=== PATIENT | female | born 1990 | race Two or more races ===

== ENCOUNTER 2021-01-12 13:07 | Emergency (ER) | payer MEDICAID ==
[~2021-01-12] VITALS: Ht 157.5 cm; Wt 45.0 kg
[2021-01-12] MEDS ORDERED: CIPR7.5D EACH EAR (14:07)
--- NOTE | 2021-01-12 14:08 | ED.ADGEN ---
Past Medical History Past Medical History: No Pertinent History Past Surgical History: No Surgical History Smoking Status: Never Smoker Alcohol Use: None General Adult EDM: Chief Complaint: EARACHE/EAR PAIN HPI: HPI: Patient is a 30-year-old previously healthy female at 19 weeks gestation who presents to the emergency room complaining of left ear pain. This is been constant for the last 30 days. She states her mother is try to put something in it but she is unsure what. She states that it did not help. She states that her ear is very painful. She does not try to take anything for it at home. She states that sometimes it drains stuff like it is infected. She denies any difficulty with her teeth. She has not had any swelling in her face. She has not had any fever. She denies any other associated symptoms. Review of Systems: Review of Systems: Complete ROS is negative unless otherwise documented in HPI Allergies: Allergies: Allergies Coded Allergies Type Severity Reaction Last Updated Verified No Known Drug Allergies 01/12/21 No Physical Exam: PE: General: Awake, alert, NAD. Well Nourished, well hydrated. Cooperative HEENT: Atraumatic, EOMI, PERRL, airway patent, moist oral mucosa, no swelling of face, no lymphadenopathy, right TM appears normal, left TM has some surrounding erythema and cloudy fluid behind TM, wax in ear canal Neck: Supple, trachea midline GI: Soft, nondistended, nontender, no masses MSK: No obvious deformities Skin: Warm, dry, intact Neuro: A&O x3, speech NL, sensory and motor grossly intact, no focal deficits Psych: Normal affect, normal mood, not suicidal or homicidal Current Patient Data: Vital Signs: Vital Signs Date Time Temp Pulse Resp B/P (MAP) Pulse Ox O2 Delivery O2 Flow Rate FiO2 01/12/21 14:15 81 16 101/60 (74) 100 Room Air 01/12/21 13:28 98.5 98.5 EKG: EKG: [] Heart Score: C/O Chest Pain: N/A Risk Factors: Risk Factors: DM, Current or recent (<one month) smoker, HTN, HLP, family history of CAD, obesity. Risk Scores: Score 0 - 3: 2.5% MACE over next 6 weeks - Discharge Home Score 4 - 6: 20.3% MACE over next 6 weeks - Admit for Clinical Observation Score 7 - 10: 72.7% MACE over next 6 weeks - Early Invasive Strategies Radiology/Procedures: Radiology/Procedures: [] Course & Med Decision Making: Course & Med Decision Making Pertinent Labs and Imaging studies reviewed. (See chart for details) Patient is a 30-year-old female presents to the emergency room with an otitis media. I discussed with the patient not putting anything else in her ears. We will place her on eardrops for her infection. She will follow up with her [employer]. We discussed she can take Tylenol for pain. Patient's test results and vitals while in the ED were fully reviewed and discussed with the patient. Patient is stable and at this time does not need admission to the hospital. We have discussed strict return precautions and the importance of following up with their Primary Care Physician. Patient stated understanding and was given an opportunity to ask any questions. Patient is in agreement with plan. [place] Disclaimer: Alma Disclaimer: This electronic medical record was generated, in whole or in part, using a voice recognition dictation system. Departure Departure Impression: Primary Impression: Otitis media Disposition: HOME / SELF CARE / HOMELESS Condition: STABLE Referrals: NO PCP (PCP) Patient Instructions: Otitis Media, Adult Scripts Ciprofloxacin Hcl/Dexameth (CIPRODEX OTIC SUSPENSION) 7.5 Ml Drops.susp 4 DROP EACH EAR BID, #7.5 ML Prov: KHRIS GUARDADO MD 01/12/21 KHRIS GUARDADO MD January 12, 2021 14:08
[2021-01-12 14:15] VITALS: BP 101/60
== END 2021-01-12 14:16 | disposition home or self-care (01) ==
LOC: ER 13:07
DX: O26.892 Other specified pregnancy related conditions, second trimester (principal); Z3A.19 19 weeks gestation of pregnancy; H66.92 Otitis media, unspecified, left ear
CPT/HCPCS: 99283

== ENCOUNTER 2021-11-29 08:16 | Emergency (ER) | payer MEDICAID ==
[~2021-11-29 08:16] MED LIST: CIPR7.5D EACH EAR
== END 2021-11-29 09:06 | disposition left against medical advice (07) ==
LOC: ER 08:16
DX: R50.9 Fever, unspecified (principal); R05.9 Cough, unspecified; J02.9 Acute pharyngitis, unspecified; Z53.21 Procedure and treatment not carried out due to patient leaving prior to being seen by health care provider